=== PATIENT | male | born 1930 | race Caucasian/White ===

== ENCOUNTER → 2017-01-18 | Outpatient (CLI) | payer OTHER ==
[~2017-01-18] MED LIST: COLCRYS0.6 MG PO; COUMADIN7.5 MG PO; DIGOXIN0.25 MG PO; FINASTERIDE5 MG PO; FUROSEMIDE40 MG PO; LATANOPROST0.005 % OP; LORATADINE10 MG PO; LOSARTAN POTASS25 MG PO; METFORMIN HCL500 MG PO; MULTIPLE VITAMIN PO; PRESERVISION AREDS PO; SIMVASTATIN10 MG PO; TAMSULOSIN HCL0.4 MG PO
--- NOTE | 2017-01-18 14:30 | DIAGNOSTIC IMAGING REPORT ---
PROCEDURE: US ART LOWER EXT WITH ELISABETH-B/L INDICATION: Peripheral artery disease and venous stasis. TECHNIQUE: Preexercise ABIs were performed. The patient was exercised (toe-ups) and postexercise ABIs were repeated followed by color Doppler duplex imaging of the lower extremities. COMPARISON: None. FINDINGS: RIGHT LOWER EXTREMITY: ABIs: Pre exercise ABIs are mildly elevated (posterior tibial 1.5, dorsalis pedis 1.3), and remain elevated following exercise (posterior tibial 1.6, dorsalis pedis 1.3). VESSELS: Moderate calcified atheromatous change of the right lower extremity arterial system. RIGHT LOWER EXTREMITY PEAK SYSTOLIC VELOCITIES: Common femoral artery: Triphasic 125 cm/second. Profunda femoral artery: Biphasic 81 cm/second. Proximal superficial femoral artery: Triphasic 136 cm/second. Mid superficial femoral artery: Triphasic 105 cm/second. Distal superficial femoral artery: Triphasic 60 cm/second. Popliteal artery: Triphasic 51 cm/second. Proximal posterior tibial artery: Biphasic 55 cm/second. Proximal anterior tibial artery: Triphasic 64 cm/second. Peroneal artery: N/A. Distal posterior tibial artery: Triphasic 62 cm/second. Dorsalis pedis artery: Biphasic 90 cm/second. LEFT LOWER EXTREMITY: ABIs: The exercise ABIs are mildly elevated (posterior tibial 1.6, dorsalis pedis 1.3), and remain mildly elevated following exercise (posterior tibial 1.6, dorsalis pedis 1.2). VESSELS: Moderate calcified atheromatous changes of the left lower extremity arterial system. LEFT LOWER EXTREMITY PEAK SYSTOLIC VELOCITIES: Common femoral artery: Triphasic 141 cm/second. Profunda femoral artery: Biphasic 87 cm/second. Proximal superficial femoral artery: Triphasic 137 cm/second. Mid superficial femoral artery: Triphasic 114 cm/second. Distal superficial femoral artery: Triphasic 62 cm/second. Popliteal artery: Triphasic 53 cm/second. Proximal posterior tibial artery: Biphasic 49 cm/second. Proximal anterior tibial artery: Triphasic 61 cm/second. Peroneal artery: Triphasic 40 cm/second. Distal posterior tibial artery: Biphasic 33 cm/second. Dorsalis pedis artery: Biphasic 65 cm/second. IMPRESSION: 1. Moderate calcified atheromatous changes of bilateral lower extremity arterial system. 2. Elevation of bilateral ABIs may be a reflection of medial calcinosis. 3. No evidence of significant pre or postexercise arterial insufficiency.
--- NOTE | 2017-01-18 14:31 | DIAGNOSTIC IMAGING REPORT ---
PROCEDURE: US VENOUS - BILATERAL EXT INDICATION: VENOUS STASIS DISEASE TECHNIQUE: Duplex sonography of the deep venous system in the bilateral lower extremities was performed in the upright and semi-upright position. Compression and augmentation techniques were used. COMPARISON: None. FINDINGS: Right lower extremity: There is venous reflux in the deep venous system of the right lower extremity, including the right common femoral (1.8 seconds) and proximal right superficial femoral vein (9 mm, 3.4 seconds). The right greater saphenous vein is competent. Left lower extremity: The venous reflux in the left common femoral vein of the deep venous system (1.1 seconds). The left greater saphenous vein is competent. IMPRESSION: 1. Venous reflux in the proximal right deep venous system. 2. Venous reflux in the proximal left deep venous system. 3. No evidence of venous insufficiency in the greater saphenous veins.
== END ==
LOC: US SRH 09:46
DX: I87.2 Venous insufficiency (chronic) (peripheral) (principal)